=== PATIENT | male | born 1960 | race Caucasian/White ===

== ENCOUNTER 2020-06-15 10:28 | Inpatient (IN) | payer BC ==
[~2020-06-15] VITALS: Ht 182.9 cm; Wt 175.4 kg
[~2020-06-15 10:28] MED LIST: TOPI50TA24 PO; TRAM50TA4 PO
[2020-06-15] MEDS ORDERED: LEVOFLOXACIN 500 MG/D5W 100 ML 100 ML ONE (10:54)
[2020-06-15 11:17] LABS: BASOPHILS % (AUTO) 0.3 % (0.0-5.0); HEMATOCRIT 34.6 % (42-54); LYMPHOCYTES % (AUTO) 13.2 % (21.0-51.0); MEAN CORPUSCULAR HEMOGLOBIN 25.4 pg (27.0-33.0); MEAN CORPUSCULAR HGB CONC 31.2 g/dL (32.0-36.0); MEAN CORPUSCULAR VOLUME 81.4 fL (79-99); MONOCYTES % (AUTO) 5.4 % (3.0-13.0); NEUTROPHILS % (AUTO) 78.5 % (40.0-77.0); PLATELET COUNT (AUTO) 174 K/uL (130-400); RED BLOOD CELL COUNT(AUTO) 4.25 MIL/uL (4.50-6.20); RED CELL DISTRIBUTION WIDTH 16.2 % (11.0-15.5); WHITE BLOOD COUNT (AUTO) 14.3 K/uL (4.8-10.8)
[2020-06-15 11:31] LABS: ABG BASE EXCESS -3.1 mmol/L (-2.0-3.0); ABG HCO3 19.9 mmol/L (21.0-28.0); ABG OXYGEN SATURATION 91.9 % (95.0-99.0); ABG PCO2 29 mmHg (35-48)
[2020-06-15 11:40] LABS: ALANINE AMINOTRANSFERASE 26 U/L (12-78); ALBUMIN 2.8 g/dL (3.5-5.0); ASPARTATE AMINOTRANSFERASE 24 U/L (10-37); BILIRUBIN,TOTAL 0.7 mg/dL (0.2-1.0); CARBON DIOXIDE 22 mmol/L (21-32); CHLORIDE 107 mmol/L (101-111); CREATINE KINASE, TOTAL 245 U/L (21-232); CREATININE 2.3 mg/dL (0.5-1.5); GLOMERULAR FILTR. RATE CALC 31 mL/min (>60); GLUCOSE,RANDOM 114 mg/dL (70-105); INR 0.93 (0.85-1.15); MYOGLOBIN 206 ng/mL (10-92); PARTIAL THROMBOPLASTIN TIME 45.5 SEC (26.3-35.5); POTASSIUM 3.9 mmol/L (3.5-5.1); PROTHROMBIN TIME 10.1 SEC (9.6-11.6); SODIUM SERUM 139 mmol/L (136-145); TOTAL PROTEIN, SERUM 7.6 g/dL (6.0-8.3); TROPONIN I < 0.04 ng/mL (0.00-0.06); UREA NITROGEN, BLOOD 20 mg/dL (7-18)
[2020-06-15 11:43] LABS: APPEARANCE,URINE Cloudy (CLEAR); BILIRUBIN,URINE Negative (NEGATIVE); COLOR,URINE Yellow (YELLOW); GLUCOSE, URINE (UA) Negative (NEGATIVE); KETONES,URINE Negative (NEGATIVE); LEUKOCYTE ESTERASE ,URINE Small (NEGATIVE); NITRATE,URINE Negative (NEGATIVE); OCCULT BLOOD,URINE Moderate (NEGATIVE); PH,URINE 5.5 (5.0-8.0); PROTEIN,URINE 300 mg/dL (NEGATIVE)
[2020-06-15 12:23] LABS: BACTERIA,URINE Few /HPF (None Seen); MUCUS,URINE Few LPF (None Seen); RBC,URINE 0-1 /HPF (0-1); SQUAMOUS EPITHELIAL CELL,UR Few /HPF (0-2)
[2020-06-15] MEDS ORDERED: METHYLPREDNISOLONE SOD SUCC 40MG/ML 1ML ONE (14:18)
[2020-06-15] MEDS ORDERED: AMLO10TA7 PO (14:25)
[2020-06-15] MEDS ORDERED: BUDE10.2 IH (14:25)
[2020-06-15] MEDS ORDERED: ALBU8.5H8 IH (14:25)
[2020-06-15] MEDS ORDERED: CPAP NASAL (14:25)
[2020-06-15] MEDS ORDERED: TIZA4TAB5 PO (14:25)
[2020-06-15] MEDS ORDERED: LIDOCAINE HCL-MPF 1% 2ML VIAL IJ PRN ×2 (15:45)
[2020-06-15] MEDS ORDERED: POTASSIUM CHLORIDE 10MEQ/100ML 100 ML IV PRN ×2 (15:45)
[2020-06-15] MEDS ORDERED: POTASSIUM CHLORIDE 20 MEQ ERTAB PO PRN (15:45)
[2020-06-15] MEDS ORDERED: POTASSIUM CHLORIDE 10% ELIXIR 20 MEQ/15 ML UDCUP PO PRN (15:45)
[2020-06-15] MEDS: SODIUM CHLORIDE 0.9% 1000ML 1,000 ML IV SCH (16:00)
[2020-06-15] MEDS ORDERED: ENOXAPARIN SODIUM 40 MG/0.4 ML SYRINGE SQ ONE (19:26)
[2020-06-15] MEDS ORDERED: ACETAMINOPHEN 325 MG TAB PO PRN ×2 (23:00)
[2020-06-15] MEDS ORDERED: LACTULOSE 20 GM/30 ML UDCUP PO PRN (23:00)
[2020-06-15] MEDS: METHYLPREDNISOLONE SOD SUCC 125MG/2ML VIAL IVP SCH (23:00)
[2020-06-15] MEDS ORDERED: DiphenhydrAMINE HCL 50 MG/ML VIAL IV PRN (23:00)
[2020-06-15] MEDS ORDERED: DIPHENHYDRAMINE HCL 25 MG CAPSULE PO PRN (23:00)
[2020-06-15] MEDS ORDERED: ONDANSETRON HCL 4 MG/2 ML VIAL IV PRN (23:00)
[2020-06-15] MEDS ORDERED: MAG HYDROX/AL HYDROX/SIMETH ES 30 ML SUSP UDCUP PO PRN (23:00)
[2020-06-16] MEDS ORDERED: METHYLPREDNISOLONE SOD SUCC 40MG/ML 1ML ONE (00:39)
--- NOTE | 2020-06-16 04:20 | NUR ---
PT ARRIVED TO ROOM 408 VIA STRETCHER, REPORT RECEIVED FROM MAUREEN SAINI. PT AMBULATES, AAOx4, CPAP MACHINE AT BEDSIDE, NOT IN USE AT THIS TIME, PT ON NC 2L. DENIES PAIN, SOB WITH EXERTION AND AT REST. NO O2 USED AT HOME, ONLY CPAP. BED TO LOWEST LEVEL, SIDE RAILS x2 UP, CALL LIGHT WITHIN REACH. PCR RESULTS PENDING. GENERALIZED EDEMA NOTED.
[2020-06-16 04:30] VITALS: BP 162/87
[2020-06-16 05:43] LABS: HEMATOCRIT 35.2 % (42-54); MEAN CORPUSCULAR HEMOGLOBIN 25.3 pg (27.0-33.0); MEAN CORPUSCULAR VOLUME 81.7 fL (79-99); PLATELET COUNT (AUTO) 170 K/uL (130-400); RED BLOOD CELL COUNT(AUTO) 4.31 MIL/uL (4.50-6.20); RED CELL DISTRIBUTION WIDTH 16.1 % (11.0-15.5); WHITE BLOOD COUNT (AUTO) 12.9 K/uL (4.8-10.8)
[2020-06-16 05:51] LABS: CREATININE 2.4 mg/dL (0.5-1.5)
[2020-06-16] MEDS: FAMOTIDINE 20MG TAB 20 MG TAB PO SCH (06:00)
[2020-06-16] MEDS: METHYLPREDNISOLONE SOD SUCC 125MG/2ML VIAL IVP SCH ×3 (06:21→23:41)
[2020-06-16] MEDS: ENOXAPARIN SODIUM 40 MG/0.4 ML SYRINGE SQ SCH (07:57)
[2020-06-16] MEDS: SODIUM CHLORIDE 0.9% 1000ML 1,000 ML IV SCH ×3 (08:00→21:25)
[2020-06-16 08:23] VITALS: BP 150/64
[2020-06-16] MEDS ORDERED: FAMOTIDINE 20MG TAB 20 MG TAB PO SCH (09:00)
[2020-06-16 12:23] VITALS: BP 166/82
[2020-06-16] MEDS: POLYETHYLENE GLYCOL 3350 17 GM POWD.PACK PO SCH (13:30)
[2020-06-16] MEDS: AMLODIPINE BESYLATE 5 MG TAB PO SCH (13:31)
[2020-06-16 15:35] VITALS: BP 160/80
[2020-06-16 19:25] VITALS: BP 157/79
[2020-06-16 23:31] VITALS: BP 155/76
[2020-06-17 03:43] VITALS: BP 135/86
[2020-06-17 04:19] LABS: HEMATOCRIT 32.4 % (42-54); MEAN CORPUSCULAR HEMOGLOBIN 24.9 pg (27.0-33.0); MEAN CORPUSCULAR HGB CONC 30.6 g/dL (32.0-36.0); MEAN CORPUSCULAR VOLUME 81.6 fL (79-99); RED BLOOD CELL COUNT(AUTO) 3.97 MIL/uL (4.50-6.20); RED CELL DISTRIBUTION WIDTH 16.3 % (11.0-15.5); WHITE BLOOD COUNT (AUTO) 18.2 K/uL (4.8-10.8)
[2020-06-17] MEDS: FAMOTIDINE 20MG TAB 20 MG TAB PO SCH (06:34)
[2020-06-17] MEDS: METHYLPREDNISOLONE SOD SUCC 125MG/2ML VIAL IVP SCH (06:37)
[2020-06-17 08:36] VITALS: BP 147/87
[2020-06-17] MEDS ORDERED: LEVOFLOXACIN 500 MG/D5W 100 ML 100 ML IV SCH (09:00)
[2020-06-17] MEDS ORDERED: AMLO5TAB9 PO (09:19)
[2020-06-17] MEDS ORDERED: LEVO500T2 PO (09:19)
[2020-06-17] MEDS ORDERED: AUD IH (09:51)
[2020-06-17] MEDS ORDERED: TIOT18CA3 IH (09:51)
[2020-06-17] MEDS ORDERED: PRED10TA3 PO (09:53)
[2020-06-17] MEDS ORDERED: [UNRECOGNIZED DRUG - OTHER] (09:58)
[2020-06-17] MEDS: AMLODIPINE BESYLATE 5 MG TAB PO SCH (10:33)
[2020-06-17] MEDS: POLYETHYLENE GLYCOL 3350 17 GM POWD.PACK PO SCH (10:35)
[2020-06-17] MEDS: ENOXAPARIN SODIUM 40 MG/0.4 ML SYRINGE SQ SCH (10:40)
--- NOTE | 2020-06-17 11:00 | NUR ---
MET W PATIENT FOR DC PLANNING- HOME OXYGEN WILL SET UP PATIENT IS INDP, EMPLOYED, DIRVES, NO DME EXCPET CPAP. HX COPD/EX SMOKER, IF NEEDS OXYGEN ON THIS ADMIT WILL ARRANGE, SENT TO [facility] PATIENT , AND SEND WITH LOANER Addendum: 06/17/20 at 1931 by VINH CRANDALL RN CM Amended: Links added.
[2020-06-17 12:08] VITALS: BP 149/89
[2020-06-17] MEDS ORDERED: PREDNISONE 20 MG TABLET PO SCH (13:00)
[2020-06-19] MEDS ORDERED: LEVOFLOXACIN 500 MG TABLET PO SCH (09:00)
== END 2020-06-17 13:45 | disposition home or self-care (01) | DRG 190 ==
LOC: EDH 10:28 → EDHIP 14:19 → 4BH 06-16 04:25
PROVIDERS: ADMIT Internal Medicine; ATTEND Internal Medicine
PROC: 5A09357 Assistance with Respiratory Ventilation, Less than 24 Consecutive Hours, Continuous Positive Airway Pressure (ICD-10-PCS; 2020-06-15)
PROC: 5A09357 Assistance with Respiratory Ventilation, Less than 24 Consecutive Hours, Continuous Positive Airway Pressure (ICD-10-PCS; 2020-06-16)
PROC: 5A09357 Assistance with Respiratory Ventilation, Less than 24 Consecutive Hours, Continuous Positive Airway Pressure (ICD-10-PCS; principal; 2020-06-17)
DX: J44.0 Chronic obstructive pulmonary disease with (acute) lower respiratory infection (principal); J18.9 Pneumonia, unspecified organism; Z68.43 Body mass index [BMI] 50.0-59.9, adult; G47.33 Obstructive sleep apnea (adult) (pediatric); L43.9 Lichen planus, unspecified; E66.01 Morbid (severe) obesity due to excess calories; I13.10 Hypertensive heart and chronic kidney disease without heart failure, with stage 1 through stage 4 chronic kidney disease, or unspecified chronic kidney disease; N18.3 Chronic kidney disease, stage 3 (moderate); J44.1 Chronic obstructive pulmonary disease with (acute) exacerbation; Z20.828 Contact with and (suspected) exposure to other viral communicable diseases; F51.04 Psychophysiologic insomnia; I25.10 Atherosclerotic heart disease of native coronary artery without angina pectoris; Z96.651 Presence of right artificial knee joint; M19.90 Unspecified osteoarthritis, unspecified site; E78.2 Mixed hyperlipidemia; Z79.51 Long term (current) use of inhaled steroids; Z79.899 Other long term (current) drug therapy; Z82.0 Family history of epilepsy and other diseases of the nervous system; Z82.3 Family history of stroke; Z82.49 Family history of ischemic heart disease and other diseases of the circulatory system; Z83.3 Family history of diabetes mellitus; Z86.010 Personal history of colon polyps; Z87.442 Personal history of urinary calculi; Z87.891 Personal history of nicotine dependence
CPT/HCPCS: 36415; 36600; 71045; 80048; 80053; 81001; 82435; 82550; 82803; 82947; 83605; 83874; 83880; 84132; 84145; 84295; 84484; 85018; 85025; 85027; 85378; 85610; 85730; 86900; 86901; 87040; 87088; 87426; 87804; 93005; 93306; 93356; 94660; 94760; G0378; J1650; J1956; J2920; J2930; U0003

== ENCOUNTER → 2022-01-10 | Outpatient (CLI) | payer OTHER ==
[~2022-01-10] MED LIST changes: +ALBU8.5H8 IH; +AMLO-257 PO; +AUD IH; +BUDE10.2 IH; +CPAP NASAL; +LEVO500T2 PO; +PRED10TA3 PO; +TIOT18CA3 IH; +TIZA-211 PO; -TOPI50TA24 PO; -TRAM50TA4 PO; +[UNRECOGNIZED DRUG - OTHER]
== END | disposition home or self-care (01) ==
LOC: OIH 09:38
PROVIDERS: ATTEND Internal Medicine Cardiovascular Disease
DX: Z13.6 Encounter for screening for cardiovascular disorders (principal); R93.1 Abnormal findings on diagnostic imaging of heart and coronary circulation
CPT/HCPCS: 75571

== ENCOUNTER → 2022-03-16 | Outpatient (CLI) | payer BC ==
[~2022-03-16] MED LIST changes: +REGADENOSON 0.4 MG/5 ML PF SYG IVP SCH
== END | disposition home or self-care (01) ==
LOC: SHCH 08:35
PROVIDERS: ATTEND Internal Medicine Cardiovascular Disease
DX: I25.10 Atherosclerotic heart disease of native coronary artery without angina pectoris (principal); I51.7 Cardiomegaly; R06.00 Dyspnea, unspecified
CPT/HCPCS: 78452; 93017; 96374; A9500 ×2; J2785

== ENCOUNTER → 2022-07-02 | Outpatient (CLI) | payer BC ==
[~2022-07-02] MED LIST changes: -REGADENOSON 0.4 MG/5 ML PF SYG IVP SCH
== END | disposition home or self-care (01) ==
LOC: RAH 13:45
PROVIDERS: ATTEND Internal Medicine Cardiovascular Disease
DX: I08.0 Rheumatic disorders of both mitral and aortic valves (principal); I63.9 Cerebral infarction, unspecified; E66.9 Obesity, unspecified; Q21.1 Atrial septal defect; I51.7 Cardiomegaly; I11.9 Hypertensive heart disease without heart failure
CPT/HCPCS: 96374; C8929

== ENCOUNTER → 2022-10-24 | Outpatient (CLI) | payer BC | END | disposition home or self-care (01) | LOC: RAH 08:44 | PROVIDERS: ATTEND Psychiatry & Neurology Neurology | DX: M47.812 Spondylosis without myelopathy or radiculopathy, cervical region (principal); G60.3 Idiopathic progressive neuropathy; M48.02 Spinal stenosis, cervical region | CPT/HCPCS: 72141 ==

== ENCOUNTER 2025-05-15 10:47 | Emergency (ER) | payer BC ==
[~2025-05-15] VITALS: Ht 182.9 cm; Wt 145.1 kg
[2025-05-15] MEDS: ORPHENADRINE 60MG/2ML IM ONE (11:15)
--- NOTE | 2025-05-15 12:13 | ERN ---
General Chief Complaint: Hip Pain/Injury Stated Complaint: HIP PAIN Time Seen by : 10:48 Source: patient History of Present Illness Initial Comments Patient is a 64-year-old male coming in complaining of right hip pain. Per patient he almost fell two weeks ago in his attributes this pain to the near fall experienced. Pain radiates down the right hip to the knee. He is able to ambulate but with some discomfort. Allergies: Coded Allergies: Penicillins (Verified Allergy, Unknown, 07/10/16) Home Meds Active Scripts [nebulizer/ tubing] No Conflict Check, EA .AD AD PRN for SHORTNESS OF BREATH, #1 0 Refills Prov:SHAKIRA HUYNH MD 06/17/20 Prednisone (Prednisone) 10 Mg Tablet, 10 MG PO AD, #21 TAB 0 Refills 4 po daily x 3 days then 2 po daily x 3 days then 1 po daily x 3 days then stop Prov:SHAKIRA HUYNH MD 06/17/20 Tiotropium [place] (Spiriva) 18 Mcg Cap.w.dev, 18 MCG IH DAILY, #1 INHALER 3 Refills Prov:SHAKIRA HUYNH MD 06/17/20 Albuterol Sulfate (Proventil/Ventolin Neb Soln) 2.5 Mg/0.5 Ml Soln, 2.5 MG IH QID PRN for SHORTNESS OF BREATH, #60 ML 0 Refills Prov:SHAKIRA HUYNH MD 06/17/20 Levofloxacin (Levaquin) 500 Mg Tablet, 500 MG PO QODAY, #3 TAB 0 Refills Prov:SHAKIRA HUYNH MD 06/17/20 Amlodipine Besylate (Amlodipine Besylate) 5 Mg Tablet, 5 MG PO DAILY, #30 TAB 0 Refills Prov:SHAKIRA HUYNH MD 06/17/20 [Cpap @9CMH2O] No Conflict Check, 9 CM NASAL HS, #1 0 Refills Prov:SHAKIRA HUYNH MD 06/15/20 Tizanidine HCl (Tizanidine HCl) 4 Mg Tablet, 4 MG PO HS for 30 Days, #30 TAB Prov:SHAKIRA HUYNH MD 06/15/20 Budesonide/Formoterol Fumarate (Symbicort 160-4.5 Mcg Inhaler) 10.2 Gm Hfa.aer.ad, 2 PUFF IH BID for 90 Days, #15 GM Prov:SHAKIRA HUYNH MD 06/15/20 Albuterol Sulfate (Proair Hfa) 8.5 Gm Hfa.aer.ad, 2 PUFF IH QIDP PRN for SHORTNESS OF BREATH for 90 Days, #15 G Prov:SHAKIRA HUYNH MD 06/15/20 Past Medical History Past Medical History: COPD, Heart Disease, Hypertension Medical History Other: ckd, neuropathy Past Surgical History: Other Surgical History Other: joseph knee replacement ROS Dictation CONSTITUTIONAL: No chills, no fever, no weakness, no diaphoresis, no malaise. HEAD/FACE: No signs of trauma. EENT: No eye pain, no blurred vision, no tearing, no double vision, no ear pain, no ear discharge, no nose pain, no nasal congestion, no throat pain, no throat swelling, no mouth pain. RESPIRATORY: No cough, no orthopnea, no SOB, no stridor, no wheezing. CARDIOVASCULAR: No chest pain, no edema, no palpitations, no syncope. GASTROINTESTINAL/ABDOMINAL: No abdominal pain, no constipation, no diarrhea, no nausea, no vomiting. GENITOURINARY: No abnormal discharge, no dysuria, no frequent urination, no hematuria. No complaints of pain in the genitals. MUSCULOSKELETAL: No back pain, no gout, joint pain, no joint swelling, muscle pain, no muscle stiffness, no neck pain. INTEGUMENTARY: No change in color, no change in hair/nails, no dryness, no lesion, no lumps, no rash. NEUROLOGICAL/PSYCH: No anxiety, not depressed, no emotional problem, no headache, no numbness, no pre-existing deficit, no history of seizures, no tremors, no weakness. HEMATOLOGIC/LYMPHATIC: Not anemic, no history of blood clots, no apparent bleeding, no bruising, glands not swollen. All Systems Negative, Except as Noted. Physical Exam Physical Exam Dictation VITAL SIGNS: Reviewed. GENERAL APPEARANCE: Alert, oriented x3, no acute distress, obese. HEAD AND FACE: Non-traumatic. EYES: PERRL, pink conjunctivas, eyelid no trauma, anterior chamber clear. EARS: Pinnas intact and no signs of trauma or erythema. Ear canals clear and no discharge. TMs no erythema. NOSE: No discharge, no bleeding. OROPHARYNX: Mouth normal, teeth no caries, tongue pink. Pharynx clear, no erythema. Tonsils no exudates, no abscesses noted. Mucous membrane moist. NECK: Supple, non-tender, no thyromegaly, no masses, no JVD, no bruits. BREAST: Deferred. CHEST: No tenderness, no crepitus, no paradoxical movement, no retractions. LUNGS: Clear, well-ventilated, symmetric, no rales, no wheezing, no rhonchi, no stridor, good breath sounds bilaterally. HEART: Regular rate, regular rhythm, no murmur, no gallops. VASCULAR: No peripheral edema. ABDOMEN: Soft, positive bowel sounds, nondistended, no guarding, nontender, no rebound, no masses no hepatomegaly, no splenomegaly, no Persaud's sign, no hernias. RECTAL: Deferred. GENITAL: Deferred. NEUROLOGICAL: Normal speech, gross motor function intact, gross sensory function intact. MUSCULOSKELETAL: Neck nontender, full range of motion, back nontender, full range of motion. EXTREMITIES: Nontender, full range of motion. Right hip pain on palpation, right piriformis muscle tenderness on palpation SKIN: Color pink, dry, no turgor, no rash, no lacerations, no abrasions, no contusions. LYMPHATICS: Deferred. Results Laboratory and Microbiology Labs Reviewed?: Yes EKG/XRAY/US/CT/MRI X-RAY Comment IMAGING REPORT Signed PATIENT: NYLA MARIE MR#: [id number] : 1960 SEX: M AGE: 64 LOCATION: [facility] ORDER 105 STATUS: REG REPORT#: [id number] SERVICE 1051 REASON: hip ORDERING PHYSICIAN: SHERRY METCALF MD PROCEDURE: HIP U 2V R - HIP UNILAT 2-3VW RIGHT EXAM: CR right Hip, 2 View. CLINICAL HISTORY: hip COMPARISON: None provided. FINDINGS: There is concern for a nondisplaced of The right femoral neck fracture. Recommend CT imaging for further evaluation. IMPRESSION: 1. Possible nondisplaced right femoral neck fracture. CT imaging recommended for further evaluation. /[place] DICTATED BY: DAYANARA ARORA Jr., MD DATE: 05/15/25 1316 ELECTRONICALLY SIGNED BY: DAYANARA ARORA Jr., MD DATE: 05/15/[address] Scan Comment [place] [address] [address] IMAGING REPORT Signed PATIENT: NYLA MARIE MR#: [id number] : 1960 SEX: M AGE: 64 LOCATION: [facility] ORDER 1230 STATUS: [facility] ER REPORT#: [id number] SERVICE 1228 REASON: right hip abnormal xray ORDERING PHYSICIAN: SHERRY METCALF MD PROCEDURE: LOW EXT WO - CT LOW EXT W/O CONTRAST EXAM: CT right Hip, without IV contrast. CLINICAL HISTORY: right hip abnormal xray TECHNIQUE: Axial images were acquired through the right hip without IV contrast. Reformatted images were reviewed. COMPARISON: None provided. FINDINGS: BONES: No acute fracture or aggressive appearing osseous lesion. JOINTS: No dislocation. The joint spaces are normal. Mild degenerative changes in the right hip joint in the form of a mild reduction in joint space and subchondral osseous cysts in the anterior acetabulum. SOFT TISSUES: Mild swelling of the hip muscles. IMPRESSION: 1. No acute findings. /[place] DICTATED BY: BINH DE ANDA MD DATE: 05/15/25 1501 ELECTRONICALLY SIGNED BY: BINH DE ANDA MD DATE: 05/15/25 1501 MDM MDM: Differential diagnosis: Right hip strain, right hip sciatica, Rationale: Tests considered and ordered secondary to shared decision making include: Previous outside records reviewed: Old ER visits. Risk of complication and/or morbidity or mortality of patient management: None Medications-Per medication reconciliation Need for hospitalization: Patient does not meet criteria for hospitalization. Need for emergency major/minor surgery: No Patient is a 64-year-old male coming in complaining of right hip pain. On physical exam he has tenderness to the right hip. Patient will be discharged with a diagnosis of right hip sciatica medication will be provided for symptomatic relief. Due to the abnormal x-ray read which stated that patient might have a hip fracture a CT was warranted. CT did not disclose any acute findings chronic changes of present but no acute findings. Patient will be discharged in stable condition with a diagnosis of hip strain and sciatica. ED Course Orders Procedure Category Date Status Time Hip Unilat 2-3vw Right RAD 05/15/25 Resulted 10:51 Orphenadrine Citrate PHA 05/15/25 Complete (Norflex) 11:00 Ct Low Ext W/O CT 05/15/25 Resulted Contrast 12:28 Triamcinolone Acet PHA 05/15/25 Logged 40mg/Ml 1ml (Kenalog 14:30 Current Medications Medications (Trade) Dose Ordered Sig/Juan Route PRN Reason Start Time Stop Time Status Last Admin Dose Admin Orphenadrine Citrate (Norflex) 60 mg ONCE ONCE IM 05/15/25 11:00 05/15/25 11:01 DC 05/15/25 11:15 Triamcinolone Acetonide (Kenalog 40) 40 mg ONCE ONCE IM 05/15/25 14:30 05/15/25 14:31 UNV Vital Signs Date Time Temp Pulse Resp B/P (MAP) Pulse Ox O2 Delivery O2 Flow Rate FiO2 05/15/25 10:54 97.9 76 18 154/75 94 Room Air* 0 21 05/15/25 10:51 97.9 76 18 154/75 94 Room Air 0 DX & DISP Disposition: Discharge Departure Impression: Primary Impression: Strain of right hip Additional Impression: Right sided sciatica Condition: Stable Scripts Acetaminophen (Tylenol) 500 Mg Tab 1 TAB PO Q6HPRN PRN for pain or fever for 3 Days, #20 TAB 0 Refills Prov: SHERRY METCALF MD 05/15/25 Methocarbamol (Robaxin) 750 Mg Tab 1 TAB PO BID for 7 Days, #14 TAB 0 Refills Prov: SHERRY METCALF MD 05/15/25 Additional Instructions: FOLLOW-UP WITH PRIMARY CARE PROVIDER IN 1 TO 2 DAYS. TAKE MEDICATIONS DIRECTED HERE IN THE EMERGENCY ROOM. OKAY TO CONTINUE HOME MEDICATIONS UNLESS OTHERWISE DISCUSSED DURING YOUR VISIT IN THE EMERGENCY ROOM TODAY. RETURN TO YOUR NEAREST EMERGENCY ROOM IF SYMPTOMS WORSEN OR IF THERE IS NO IMPROVEMENT. CALL 911 IF YOU NEED IMMEDIATE ASSISTANCE. TAKE TYLENOL [id number] NEEDED AND IF NO CONTRAINDICATIONS ARE PRESENT. INCREASE ORAL HYDRATION. A WOUND CULTURE OR URINE CULTURE WAS ORDERED HERE IN THE EMERGENCY ROOM DEPARTMENT PLEASE FOLLOW-UP WITH PRIMARY CARE PROVIDER AND ADVISE THEM TO GET REPORTS FROM OUR FACILITY. IF YOU HAD ANY FREDDIE WRAP/SPLINTS THAT WERE APPLIED HERE, PLEASE DO NOT REMOVE THEM UNTIL YOU SEE YOUR PRIMARY CARE OR SPECIALTY. Referrals: Referrals: SHAKIRA HUYNH MD (PCP) JEREMY OVALLES MD Time of Disposition: 12:13 SHERRY METCALF MD May 15, 2025 12:13
--- NOTE | 2025-05-15 12:17 | HMCIMG ---
EXAM: CR right Hip, 2 View. CLINICAL HISTORY: hip COMPARISON: None provided. FINDINGS: There is concern for a nondisplaced of The right femoral neck fracture. Recommend CT imaging for further evaluation. IMPRESSION: 1. Possible nondisplaced right femoral neck fracture. CT imaging recommended for further evaluation. /[place]
--- NOTE | 2025-05-15 14:02 | HMCIMG ---
EXAM: CT right Hip, without IV contrast. CLINICAL HISTORY: right hip abnormal xray TECHNIQUE: Axial images were acquired through the right hip without IV contrast. Reformatted images were reviewed. COMPARISON: None provided. FINDINGS: BONES: No acute fracture or aggressive appearing osseous lesion. JOINTS: No dislocation. The joint spaces are normal. Mild degenerative changes in the right hip joint in the form of a mild reduction in joint space and subchondral osseous cysts in the anterior acetabulum. SOFT TISSUES: Mild swelling of the hip muscles. IMPRESSION: 1. No acute findings. /[place]
[2025-05-15] MEDS ORDERED: METH-662 PO (14:22)
[2025-05-15] MEDS ORDERED: ACET-66 PO (14:22)
[2025-05-15] MEDS: TRIAMCINOLONE ACETONIDE 40 MG/ML 1ML VIAL IM ONE (14:32)
[2025-05-15 14:36] VITALS: BP 156/78; PULSE 70; RESP 18; TEMP 97.8; O2SAT 94
== END 2025-05-15 14:45 | disposition home or self-care (01) ==
LOC: EDH 10:47
DX: S76.011A Strain of muscle, fascia and tendon of right hip, initial encounter (principal); M54.31 Sciatica, right side; I12.9 Hypertensive chronic kidney disease with stage 1 through stage 4 chronic kidney disease, or unspecified chronic kidney disease; N18.9 Chronic kidney disease, unspecified; J44.9 Chronic obstructive pulmonary disease, unspecified; Z79.51 Long term (current) use of inhaled steroids; Z88.0 Allergy status to penicillin; Z96.653 Presence of artificial knee joint, bilateral; W18.39XA Other fall on same level, initial encounter; Y93.89 Activity, other specified; Y92.89 Other specified places as the place of occurrence of the external cause; Y99.8 Other external cause status
CPT/HCPCS: 99284; 73700; 73502; 96372 ×2; J3301; J2360

== ENCOUNTER 2025-08-03 06:14 | Day surgery (SDC) | payer BC ==
[2025-07-29 14:49] LABS: IMMATURE GRANULOCYTE ABSOLUTE 0.30 K/uL (0-1); NUCLEATED RED BLOOD CELLS 0.0 % (0.0-0.19); PLATELET COUNT (AUTO) 235 K/uL (130-400); RED BLOOD CELL COUNT(AUTO) 4.86 MIL/uL (4.50-6.20); RED CELL DISTRIBUTION WIDTH 16.6 % (11.0-15.5); WHITE BLOOD COUNT (AUTO) 15.8 K/uL (4.8-10.8)
[2025-07-29 14:58] LABS: INR <= 0.93 (0.85-1.15)
[2025-07-29 15:05] LABS: ASPARTATE AMINOTRANSFERASE 15.0 U/L (10-37); CREATININE 3.6 mg/dL (0.5-1.3); GLOMERULAR FILTR. RATE CALC 18.0 mL/min (>90); GLUCOSE,RANDOM 106.0 mg/dL (70-105); SODIUM SERUM 140.0 mmol/L (136-145); TOTAL PROTEIN, SERUM 7.5 g/dL (6.0-8.3); UREA NITROGEN, BLOOD 48.0 mg/dL (7-18)
[2025-07-29 15:28] VITALS: BP 153/77; PULSE 60; RESP 14; TEMP 98.4
--- NOTE | 2025-07-29 16:16 | EKG ---
[facility] Test Date: 2025-07-29 Test Time: 14:37:37 Pat Name: NYLA MARIE Department: Patient [place] [id number] Room: Gender: M Talent Partner: [id number] : 1960 Requested By: ELIAS CHENG Order Number: [id number] Reading MD: Oseas Victoria Measurements Intervals [place] Rate: 62 P: 33 OR: 273 QRS: 52 QRSD: 98 T: 69 QT: 431 QTc: 437 Interpretive Statements Sinus rhythm Prolonged OR interval Compared to ECG 06/15/2020 10:51:21 First degree AV block now present Myocardial infarct finding no longer present Electronically Signed On 07-29-2025 16:33:30 CDT by Oseas Victoria Please click the below link to view image of tracing.
--- NOTE | 2025-08-02 09:34 | NUR ---
REPORT DR MCRAE REVIEWED EKG. OK TO PROCEED
--- NOTE | 2025-08-02 15:08 | NUR ---
REPORT REPORTED CBC TO DR CHENG/MOO. OK TO PROCEED
[~2025-08-03] VITALS: Ht 182.9 cm; Wt 149.7 kg
[2025-08-03] VITALS (17 sets, daily range): BP systolic 107–154; BP diastolic 54–76; PULSE 64–87; RESP 13–17; TEMP 97–97.8
[~2025-08-03 06:14] MED LIST changes: +ACET-2743 PO; -ALBU8.5H8 IH; -AMLO-257 PO; +ASPI-1197 PO; -AUD IH; -BUDE10.2 IH; +CBD PO; +CEPH250C3 PO; +CHOL100040 PO; +COLE1TAB2 PO; -CPAP NASAL; +DILT300C42 PO; +FAMO20TA8 PO; +FOLI0.8T43 PO; +HYDRALAZINE PO; +IRON150C5 PO; +ISOS30TA92 PO; -LEVO500T2 PO; +LOSARTAN PO; +MONT-39 PO; +POTA10CA95 PO; -PRED10TA3 PO; +PREDNISONE PO; +PROBIOTIC PO; +ROFLUMILAST PO; +ROSUVASTATIN PO; +SODI650T PO; +TAMS-55 PO; -TIOT18CA3 IH; -TIZA-211 PO; +TIZA4CAP8 PO; +TORS20TA4 PO; +TRELEGY IH; +VITA-328 PO; -[UNRECOGNIZED DRUG - OTHER]
[2025-08-03] MEDS ORDERED: LACTATED RINGERS 1000ML 1,000 ML IV ONE (06:33)
[2025-08-03] MEDS ORDERED: INVANZ 1GM+NS 50ML IVPB 50 ML IV SCH (07:00)
[2025-08-03] MEDS ORDERED: SUGAMMADEX SODIUM 200 MG/2 ML VIAL IV ONE (07:07)
[2025-08-03] MEDS ORDERED: LIDOCAINE PF 100MG/5ML (2%) SYRINGE 5ML ONE (07:13)
[2025-08-03] MEDS ORDERED: SUCCINYLCHOLINE CHLORIDE 20 MG/ML 10 ML VIAL ONE (07:14)
[2025-08-03] MEDS ORDERED: MIDAZOLAM HCL 1 MG/ML 2ML VIAL ONE (07:14)
[2025-08-03] MEDS ORDERED: LIDOCAINE 1%-EPI 1:100,000 20 ML VIAL ONE (07:36)
[2025-08-03] MEDS ORDERED: INDOCYANINE GREEN 25 MG VIAL IJ ONE (07:39)
[2025-08-03] MEDS: LIDOCAINE 1%-EPI 1:100,000 20 ML VIAL IJ ONE (08:22)
--- NOTE | 2025-08-03 12:14 | NUR ---
Full and complete discharge instructions given to Patient and Family both verbally and in writing. Explained Surgical procedure precautions and follow up. Lap sites x 5 incision site clean dry and intact. No evidence of bleeding, bruising or hematoma. All questions answered. PIV removed with catheter tip intact. at bedside appearing supportive. W/C to POV with to home
--- NOTE | 2025-08-03 17:54 | OP ---
Operative Note: DATE OF PROCEDURE: 08/03/25 SURGEON: ELIAS CHENG MD ACCOUNT MANAGEMENT SPECIALIST: None ANESTHESIA: General ANESTHESIOLOGIST/INDUSTRIAL INSULATOR: INDUSTRIAL INSULATOR PREOPERATIVE DIAGNOSIS: Colovesical Fistula UTI, recurrent POSTOPERATIVE DIAGNOSIS: Normal Appearing Colon UTI, recurrent PROCEDURE: Diagnostic Laparoscopy Flexible Sigmoidoscopy Exam under anesthesia of the anus and rectum ESTIMATED BLOOD LOSS: Minimal INDICATIONS: Mr. Guillen is a very pleasant 64-year-old male who presented to our clinic with pneumaturia, fecal urea and underwent a cystoscopy by his urologist reporting stool within the urinary bladder. Given his recurrent significant symptoms he was offered surgical management and the procedure. Compl ications, risk, alternative and benefits were explained to the patient including but not limited to infection, bleeding, injury to surrounding structures such as blood vessels nerves and other organs, anastomotic leak, need for stoma , recurrence of disease and need for additional procedures. The patient voiced understanding and wished to proceed with surgery. All of the patient's questions were answered to his satisfaction. DESCRIPTION OF PROCEDURE: After informed consent was obtained, the patient was taken to the operating room and laid in supine position. Once general endotracheal anesthesia was obtained, the patient was carefully placed into lithotomy position. Next abdomen was prepped and draped in usual sterile fashion . A Timeout was performed to confirm correct patient procedure. Next a Veress needle was inserted comfortably intra-abdominal with saline drop test. Pneumoperitoneum was obtained. We then made an 8 mm incision followed by placement of a trocar. The camera is inserted and the abdomen was inspected there is no significant findings. We then placed additional trocars in a diagonal manner across the abdomen and then placed the patient is deep to the lumbar. Once history of Trendelenburg noted; appear completely normal without any inflammation or adhesions to the left pelvic sidewall or the bladder. The bladder was completely free of any contact with the colon or other intra- abdominal organs. We assessed the pelvis and again this appeared normal all the way down to the peritoneal reflection. Given this it was decided to not perform a resection at this time as the risk outweighs any benefit. We then performed an exam under anesthesia by placing an anoscope into the anal canal and examine the lower rectum. There was no evidence to suggest a rectourethral fistula, no erythema or mucosal defects appreciated in the low rectum. We then performed a flexible sigmoidoscopy which confirmed the same mucosa appeared normal without nodularity or appearance to suggest fistula from the rectum to the genitourinary organs. This completed the case. We then closed all the skin incisions with Monocryl sutures the 12 mm port site was closed with Vicryl and confirmed to be without bleeding. Dermabond placed a sterile dressing. The patient tolerated the procedure well was taken to recovery in stable condition. I discussed the above in detail with the including pictures at completion of the case I did discuss the case with his urologist Dr. Duff and my colorectal colleague . ELIAS CHENG MD Aug 03, 2025 17:54
== END 2025-08-03 12:30 | disposition home or self-care (01) ==
LOC: UNDOADMIN 06:14 → DAHIP 06:14 → DAH 06:14
PROVIDERS: ATTEND Surgery
DX: N32.1 Vesicointestinal fistula (principal); N39.0 Urinary tract infection, site not specified; K57.30 Diverticulosis of large intestine without perforation or abscess without bleeding; I25.10 Atherosclerotic heart disease of native coronary artery without angina pectoris; I12.9 Hypertensive chronic kidney disease with stage 1 through stage 4 chronic kidney disease, or unspecified chronic kidney disease; N18.9 Chronic kidney disease, unspecified; J44.9 Chronic obstructive pulmonary disease, unspecified; G47.30 Sleep apnea, unspecified; E78.00 Pure hypercholesterolemia, unspecified; E66.01 Morbid (severe) obesity due to excess calories; Z68.41 Body mass index [BMI] 40.0-44.9, adult; Z80.0 Family history of malignant neoplasm of digestive organs; Z88.0 Allergy status to penicillin; Z79.899 Other long term (current) drug therapy; Z98.890 Other specified postprocedural states
CPT/HCPCS: 80053; 85025; 85610; 85730; 86850 ×2; 86900 ×2; 86901 ×2; 36415 ×2; 93005; 49320; 45330; A6260; A4663; J7030; J7120 ×2; A4344; A4215 ×2; A4649 ×3; J3010 ×4; J3490 ×6; J1100; J0330; J0665 ×2; J2003; J2250; J2704 ×2; J2405; J2371 ×2; J1335; C1769; A4930 ×2; A4213; A4222; A4221; A4216; A4223 ×2; A4600

== ENCOUNTER 2025-09-18 15:57 | Emergency (ER) | payer BC ==
[~2025-09-18] VITALS: Ht 182.9 cm; Wt 145.1 kg
--- NOTE | 2025-09-18 16:04 | NUR ---
TRAUMA LEVEL 2,SEE DOCUMENTATIONS ON TRAUMA FLOOWSHEET
--- NOTE | 2025-09-18 16:17 | NUR ---
BACK FROM CT
--- NOTE | 2025-09-18 16:54 | HMCIMG ---
EXAM: CT Head Without IV contrast. CLINICAL HISTORY: HEAD INJURY S/P FALL TECHNIQUE: Axial computed tomography images of the head/brain without intravenous contrast. COMPARISON: None provided. FINDINGS: BRAIN: No evidence of acute hemorrhage. No mass lesion. No CT evidence for acute territorial infarct. No midline shift or extra-axial collections. Age-appropriate changes VENTRICLES: No hydrocephalus. ORBITS: The orbits are unremarkable. SINUSES AND MASTOIDS: The paranasal sinuses and mastoid air cells are clear. BONES: No fracture. SOFT TISSUES: Left prefrontal soft tissue swelling with laceration. IMPRESSION: No acute intracranial abnormality. /[place]
--- NOTE | 2025-09-18 17:12 | ERN ---
General Chief Complaint: Mechanical Fall Stated Complaint: MECHANICAL FALL Time Seen by MD: 16:01 Source: patient, EMS History of Present Illness Initial Comments Patient is a 64-year-old gentleman coming in after he had a slip and a fall. Patient states he hit himself in the head did not lose consciousness. No neck pain. Allergies: Coded Allergies: Penicillins (Verified Allergy, Unknown, 07/10/16) Home Meds Reported Medications [Rosuvastatin] No Conflict Check, 20 MG PO HS 07/29/25 [Losartan] No Conflict Check, PO DAILY 07/29/25 [Cbd] No Conflict Check, 1 GUM PO HS 07/29/25 [Prednisone] No Conflict Check, 15 MG PO DAILY 07/29/25 Cephalexin (Cephalexin) 250 Mg Capsule, 250 MG PO HS, CAP 07/29/25 Tamsulosin HCl (Flomax) 0.4 Mg Cap.er.24h, 0.4 MG PO HS, CAPSULE.DR 07/29/25 [Probiotic] No Conflict Check, 1 TAB PO DAILY 07/29/25 Acetaminophen (Tylenol Extra Strength) 500 Mg Tablet, 2000 MG PO HS, TAB 07/29/25 Tizanidine HCl (Tizanidine HCl) 4 Mg Capsule, 8 MG PO HS, CAP 07/29/25 Montelukast Sodium (Montelukast Sodium) 10 Mg Tablet, 10 MG PO HS, TAB 07/29/25 Famotidine (Famotidine) 20 Mg Tablet, 20 MG PO HS, TAB 07/29/25 Sodium Bicarbonate (Sodium Bicarbonate) 650 Mg Tablet, 650 MG PO HS, TAB 07/29/25 Colestipol HCl (Colestipol HCl) 1 Gram Tablet, 1 GM PO AM, TAB 07/29/25 [Trelegy] No Conflict Check, 1 PUFF IH AM 07/29/25 Cholecalciferol (Vitamin D3) (Vitamin D3) 25 Mcg (1000 Unit) Capsule, 25 MCG PO AM, CAP 07/29/25 Torsemide (Torsemide) 20 Mg Tablet, 20 MG PO AM, TAB 07/29/25 Sodium Bicarbonate (Sodium Bicarbonate) 650 Mg Tablet, 1300 MG PO AM, TAB 07/29/25 [Roflumilast] No Conflict Check, 10 MCG PO AM 07/29/25 Folic Acid/Vit Bcomp,C (Renal-Maxine Tablet) 0.8 Mg Tablet, 0.8 MG PO BID, TAB 07/29/25 Potassium Chloride (Potassium Chloride) 10 Meq Capsule.er, 10 MEQ PO DAILY, CAP 07/29/25 Isosorbide Mononitrate (Isosorbide Mononitrate ER) 30 Mg Tab.er.24h, 30 MG PO AM, TAB 07/29/25 [Hydralazine] No Conflict Check, 15 MG PO NOON 07/29/25 [Hydralazine] No Conflict Check, 30 MG PO AM 07/29/25 Iron Polysaccharides Complex (Ferrex 150) 150 Mg Iron Capsule, 150 MG PO BID, CAP 07/29/25 Diltiazem HCl (Diltiazem ER) 300 Mg Capsule.er, 300 MG PO AM, CAP 07/29/25 Vitamin B Complex (B Complex) 1 Each Tablet, 1 EACH PO AM, TAB 07/29/25 Aspirin (Aspirin) 81 Mg Tab.chew, 81 MG PO DAILY, TAB.CHEW 07/29/25 Past Medical History Past Medical History: COPD, Heart Disease, Hypertension Medical History Other: ckd, neuropathy Past Surgical History: Other Surgical History Other: joseph knee replacement ROS Dictation CONSTITUTIONAL: No chills, no fever, no weakness, no diaphoresis, no malaise. HEAD/FACE: signs of trauma. EENT: No eye pain, no blurred vision, no tearing, no double vision, no ear pain, no ear discharge, no nose pain, no nasal congestion, no throat pain, no throat swelling, no mouth pain. RESPIRATORY: No cough, no orthopnea, no SOB, no stridor, no wheezing. CARDIOVASCULAR: No chest pain, no edema, no palpitations, no syncope. GASTROINTESTINAL/ABDOMINAL: No abdominal pain, no constipation, no diarrhea, no nausea, no vomiting. GENITOURINARY: No abnormal discharge, no dysuria, no frequent urination, no hematuria. No complaints of pain in the genitals. MUSCULOSKELETAL: No back pain, no gout, no joint pain, no joint swelling, no muscle pain, no muscle stiffness, no neck pain. INTEGUMENTARY: No change in color, no change in hair/nails, no dryness, lesion, no lumps, no rash. NEUROLOGICAL/PSYCH: No anxiety, not depressed, no emotional problem, no headache, no numbness, no pre-existing deficit, no history of seizures, no tremors, no weakness. HEMATOLOGIC/LYMPHATIC: Not anemic, no history of blood clots, no apparent bleeding, no bruising, glands not swollen. All Systems Negative, Except as Noted. Physical Exam Physical Exam Dictation VITAL SIGNS: Reviewed. GENERAL APPEARANCE: Alert, oriented x3, no acute distress, obese. HEAD AND FACE: Non-traumatic. EYES: PERRL, pink conjunctivas, eyelid no trauma, anterior chamber clear. EARS: Pinnas intact and no signs of trauma or erythema. Ear canals clear and no discharge. TMs no erythema. NOSE: No discharge, no bleeding. OROPHARYNX: Mouth normal, teeth no caries, tongue pink. Pharynx clear, no erythema. Tonsils no exudates, no abscesses noted. Mucous membrane moist. NECK: Supple, non-tender, no thyromegaly, no masses, no JVD, no bruits. BREAST: Deferred. CHEST: No tenderness, no crepitus, no paradoxical movement, no retractions. LUNGS: Clear, well-ventilated, symmetric, no rales, no wheezing, no rhonchi, no stridor, good breath sounds bilaterally. HEART: Regular rate, regular rhythm, no murmur, no gallops. VASCULAR: No peripheral edema. ABDOMEN: Soft, positive bowel sounds, nondistended, no guarding, nontender, no rebound, no masses no hepatomegaly, no splenomegaly, no Persaud's sign, no hernias. RECTAL: Deferred. GENITAL: Deferred. NEUROLOGICAL: Normal speech, gross motor function intact, gross sensory funct ion intact. MUSCULOSKELETAL: Neck nontender, full range of motion, back nontender, full range of motion. EXTREMITIES: Nontender, full range of motion. SKIN: Color pink, dry, no turgor, no rash, left facial laceration triangular shaped 10cm lacerations, no abrasions, no contusions. LYMPHATICS: Deferred. Results Laboratory and Microbiology Labs Reviewed?: Yes EKG/XRAY/US/CT/MRI CT Scan Comment [facility] [address] [place] [address] IMAGING REPORT Signed PATIENT: NYLA MARIE MR#: [id number] : 1960 SEX: M AGE: 64 LOCATION: [facility] ORDER 1602 STATUS: REG ER REPORT#: [id number] SERVICE [id number] REASON: HEAD INJURY S/P FALL ORDERING PHYSICIAN: SHERRY METCALF MD PROCEDURE: HEAD WO - CT HEAD/BRAIN W/O CONTRAST EXAM: CT Head Without IV contrast. CLINICAL HISTORY: HEAD INJURY S/P FALL TECHNIQUE: Axial computed tomography images of the head/brain without intravenous contrast. COMPARISON: None provided. FINDINGS: BRAIN: No evidence of acute hemorrhage. No mass lesion. No CT evidence for acute territorial infarct. No midline shift or extra-axial collections. Age-appropriate changes VENTRICLES: No hydrocephalus. ORBITS: The orbits are unremarkable. SINUSES AND MASTOIDS: The paranasal sinuses and mastoid air cells are clear. BONES: No fracture. SOFT TISSUES: Left prefrontal soft tissue swelling with laceration. IMPRESSION: No acute intracranial abnormality. /[place] DICTATED BY: SHASHI DALE MD DATE: 09/18/251752 ELECTRONICALLY SIGNED BY: SHASHI DALE MD DATE: 09/18/251752 [facility] MDM: Differential diagnosis: Head injury, facial laceration Rationale: Tests considered and ordered secondary to shared decision making include: Previous outside records reviewed: Old ER visits. Risk of complication and/or morbidity or mortality of patient management: None Medications-Per medication reconciliation Need for hospitalization: Patient does not meet criteria for hospitalization. Need for emergency major/minor surgery: No Patient is a 64-year-old male coming in after he had a slip and a fall earlier today. Landed under the side in his face. Eight Inch laceration on the left side of the face was repaired good approximation achieved. Twelve Sutures radha mehul ED Course Orders Procedure Category Date Status Time Ct Head/Brain W/O CT 09/18/25 Resulted Contrast 15:59 Levofloxacin 500 PHA 09/18/25 Complete Mg/D5w 100 Ml 16:00 Tetanus,Diphtheria PHA 09/18/25 Complete Tox [Adult] (Diphther 16:00 Lidocaine Hcl 1% 20ml PHA 09/18/25 Complete Vial (Lidocaine Hc 16:30 Levofloxacin 250 PHA 12/6/25 In Process Mg/D5w 50ml (Levaquin 17:00 Lidocaine Hcl 1% 20ml PHA 09/18/25 Complete Vial (Lidocaine Hc 17:00 Tramadol PHA 09/18/25 Verified Hcl/Acetaminophen 17:30 Current Medications Medications (Trade) Dose Ordered Sig/Juan Route PRN Reason Start Time Stop Time Status Last Admin Dose Admin Levofloxacin/ Dextrose 50 ml @ 50 mls/hr ONCE ONCE IVPB 09/18/25 17:00 09/18/25 17:59 09/18/25 16:54 Levofloxacin/ Dextrose 100 ml @ 100 mls/hr ONCE ONCE IV 09/18/25 16:00 09/18/25 16:32 DC Lidocaine HCl (Lidocaine HCl 1% 20ml Vial) ONCE ONCE INJ 09/18/25 17:00 09/18/25 17:01 DC Lidocaine HCl (Lidocaine HCl 1% 20ml Vial) 20 ml STK-MED ONCE .ROUTE 09/18/25 16:30 09/18/25 16:31 DC Tetanus/ Diphtheria Toxoids Adsorbed (DiphthERIA-teTANUS TOXOID [ADULT]/ DECAVAC) 0.5 ml ONCE ONCE IM 09/18/25 16:00 09/18/25 16:07 DC 09/18/25 16:35 Vital Signs Date Time Temp Pulse Resp B/P (MAP) Pulse Ox O2 Delivery O2 Flow Rate FiO2 09/18/25 16:05 98.1 83 16 128/61 95 Room Air 0 Laceration/Wound Repair Laceration/Wound Repair : Wound Location: face Wound Length (cm): 20 Wound's Depth, Shape: into muscle, irregular Wound Explored: contaminated Irrigated w/ Saline (ccs): 100 Betadine Prep?: Yes Anesthesia: 1% Lidocaine Volume Anesthetic (ccs): 8 Wound Repaired With: sutures Suture Size/Type: 4:0 Number of Sutures: 10 Layer Closure?: Yes DX & DISP Disposition: Discharge Departure Impression: Primary Impression: Facial laceration Additional Impression: Head injury Condition: Stable Additional Instructions: FOLLOW-UP WITH PRIMARY CARE PROVIDER IN 1 TO 2 DAYS. TAKE MEDICATIONS DIRECTED HERE IN THE EMERGENCY ROOM. OKAY TO CONTINUE HOME MEDICATIONS UNLESS OTHERWISE DISCUSSED DURING YOUR VISIT IN THE EMERGENCY ROOM TODAY. RETURN TO Y OUR NEAREST EMERGENCY ROOM IF SYMPTOMS WORSEN OR IF THERE IS NO IMPROVEMENT. CALL 911 IF YOU NEED IMMEDIATE ASSISTANCE. TAKE TYLENOL [id number] NEEDED AND IF NO CONTRAINDICATIONS ARE PRESENT. INCREASE ORAL HYDRATION. A WOUND CULTURE OR URINE CULTURE WAS ORDERED HERE IN THE EMERGENCY ROOM DEPARTMENT PLEASE FOLLOW-UP WITH PRIMARY CARE PROVIDER AND ADVISE THEM TO GET REPORTS FROM OUR FACILITY. IF YOU HAD ANY FREDDIE WRAP/SPLINTS THAT WERE APPLIED HERE, PLEASE DO NOT REMOVE THEM UNTIL YOU SEE YOUR PRIMARY CARE OR SPECIALTY. Referrals: Referrals: SHAKIRA HUYNH MD (PCP) Time of Disposition: 17:25 SHERRY METCALF MD Sep 18, 2025 17:12
[2025-09-18] MEDS: LIDOCAINE HCL 1% 20 ML VIAL INJ ONE (17:42)
[2025-09-18] MEDS: LIDOCAINE HCL 1% 20 ML VIAL ONE (17:44)
[2025-09-18 18:50] VITALS: BP 131/70; PULSE 76; RESP 16; TEMP 98.2; O2SAT 98
--- NOTE | 2025-09-18 19:04 | NUR ---
SEE TRAUMA PACKET
[2025-09-18] MEDS: NEOMY SULF/BACITRA/POLYMYXIN B 1 EACH PACKET TP ONE (19:26)
== END 2025-09-18 19:05 | disposition home or self-care (01) ==
LOC: EDH 15:57
DX: S01.81XA Laceration without foreign body of other part of head, initial encounter (principal); I13.10 Hypertensive heart and chronic kidney disease without heart failure, with stage 1 through stage 4 chronic kidney disease, or unspecified chronic kidney disease; N18.9 Chronic kidney disease, unspecified; J44.9 Chronic obstructive pulmonary disease, unspecified; Z79.82 Long term (current) use of aspirin; Z79.899 Other long term (current) drug therapy; Z88.0 Allergy status to penicillin; Z96.653 Presence of artificial knee joint, bilateral; W01.0XXA Fall on same level from slipping, tripping and stumbling without subsequent striking against object, initial encounter; Y93.89 Activity, other specified; Y92.89 Other specified places as the place of occurrence of the external cause; Y99.8 Other external cause status
CPT/HCPCS: 99285; 96365; 70450; 90714; 90471; 12016; J2003; J1956; 99284